=== PATIENT | female | born 1975 | race Two or more races ===

== ENCOUNTER 2022-04-14 00:07 | Emergency (ER) | payer MEDICAID, OTHER ==
[~2022-04-14] VITALS: Ht 160 cm; Wt 56.0 kg
[2022-04-14] MEDS ORDERED: ACETAMINOPHEN 325MG TABLET PO ONE (01:45)
[2022-04-14 02:11] VITALS: BP 113/61
== END 2022-04-14 02:11 | disposition home or self-care (01) ==
LOC: ER 00:07
DX: L55.0 Sunburn of first degree (principal); Z59.00 Homelessness unspecified
CPT/HCPCS: 99283